=== PATIENT | male | born 1950 | race Hispanic/Latino ===

== ENCOUNTER 2016-12-05 17:51 | Inpatient (IN) | payer MEDICARE, OTHER ==
[~2016-12-05] VITALS: Ht 162.6 cm; Wt 88.0 kg
[2016-12-05 17:57] VITALS: BP 192/90; PULSE 111; RESP 20; O2SAT 98
--- NOTE | 2016-12-05 18:07 | ED.REPORT ---
HPI-Abd Pain M 40 and Over Date of Service Dec 05, 2016 ED Provider: Aamir Montemayor DO Pt is a 66 year old male with a hx of HTN presenting to the ED complaining of diffuse abdominal pain onset this morning. He went to [facility] today for dysuria, hematuria, urinary frequency, and urinary urgency and then when the physician palpated his abdomen he began having abdominal pain. Denies fever, chills, nausea, vomiting, SOB or wheezing. Nursing Notes Stated Complaint: ABDOMINAL PAIN Chief Complaint: Male Abdominal Pain Nursing Notes Reviewed: Yes Allergies: Coded Allergies: No Known Allergies (Unverified , 12/05/16) Scheduled Amlodipine (Amlodipine) 10 Mg Tablet 10 MG PO QAM Hydrochlorothiazide (Hydrochlorothiazide) 25 Mg Tablet 12.5 MG PO QAM Potassium Chloride ER (Potassium Chloride ER) 20 Meq Tablet.er 20 MEQ PO DAILYWM TAKE WITH FOOD Scheduled PRN Acetaminophen (Acetaminophen) 500 Mg Tablet 1,000 MG PO Q6H PRN PRN For Fever Tramadol (Tramadol) 50 Mg Tablet 50 MG PO Q8H PRN PRN For Pain General Time Seen by MD: 18:06 Chief Complaint Abdominal pain Hx Obtained From: Patient Arrived By: Walk-in Sudden in Onset?: Yes Onset Occurred: Just prior to arrival Symptom Duration: Since onset Location: : Diffuse Quality: Painful Severity: Current: Moderate Severity: Maximum: Severe Recent Healthcare: No recent hospitalization, Recent doctor visit Similar Sx Previous: No Past Medical History Past Medical History Reports: Hypertension Past Surgical History denies Smoking History Unknown if Ever Smoker Social History Other Social History: Ambulatory Status Independent Review of Systems Constitutional: Denies: Chills, Fever Respiratory: Denies: Shortness of breath, Wheezing GI: Reports: Abdominal pain, Denies: Nausea, Vomiting Male: Reports Dysuria, Reports Hematuria, Reports Urinary frequency, Reports Urinary urgency Complete sys rev & neg: except as marked. Physical Exam Initial Vital Signs Vital Signs (First) Date Time Temp Pulse Resp B/P Pulse Ox O2 Delivery O2 Flow Rate FiO2 12/05/16 17:57 36.9 111 20 192/90 98 Room Air Initial VS: Reviewed Head / Eyes: Atraumatic, Normocephalic, PERRL ENT: Mucous membranes moist, Conjunctiva normal, No scleral icterus Extremities: Vascular intact, Neuro intact, No swelling, No tenderness Skin: Warm, Dry, No cyanosis Neurologic: Alert, Oriented, Nonfocal Psychiatric: Mood/affect normal, Behavior normal, Normal thought content General/Constitutional: Awake Respiratory / Chest: Atraumatic, Breath sounds NL, Breath sounds = bilat, No respiratory distress Cardiovascular: Regular rhythm, Heart sounds NL Heart Rate / Rhythm: Positive: Tachycardia Abdomen: Atraumatic, Soft Tenderness/Guarding/Rebound: Positive: Tender diffuse Interpretation & Diagnostics Lab Results Interpretation Result Diagram: 12/05/16 1826 12/05/16 1826 Test 12/05/16 18:14 12/05/16 18:18 12/05/16 18:26 12/05/16 18:27 Hold Urine Received (Received) Urine Color Yellow (YELLOW) Urine Appearance Hazy (CLEAR,HAZY) Urine pH 7.0 (5.0-8.0) Urine Specific [place] 1.015 (1.003-1.035) Urine Protein Tracemg/dL (NEG,TRACE) Urine Glucose (UA) Negativemg/dL (NEGATIVE) Urine Ketones Negativemg/dL (NEGATIVE) Urine Occult Blood Large (NEGATIVE) Urine Nitrite Positive (NEGATIVE) Urine Bilirubin Negative (NEGATIVE) Urine Urobilinogen 1.0mg/dL (NORMAL) Urine Leukocyte Esterase Large (NEGATIVE) Urine RBC 3-10/hpf (0-2) Urine WBC 6-10/hpf (0-5) Urine Epithelial Cells None/hpf (NONE-MOD) Urine Crystals None seen (NONE SEEN) Urine Bacteria Many/hpf (NONE-FEW) Urine Hyaline Casts None/lpf (NONE) Urine Granular Casts None seen (NONE SEEN) Urine Waxy Casts None seen (NONE SEEN) Urine Red Blood Cell Casts None seen (NONE SEEN) Urine White Blood Cell Casts None seen (NONE SEEN) Urine Mucus None seen (None Seen) Urine Trichomonas None seen (NONE SEEN) Urine Yeast None (NONE SEEN) Urinalysis Comment None Urine Culture Reflexed Indicated White Blood Count 14.5th/mm3 (3.8-10.1) Red Blood Count 5.01mil/mm3 (4.40-5.80) Hemoglobin 15.8g/dL (13.8-17.2) Hematocrit 43.8% (41.0-50.0) Mean Corpuscular Volume 87.4fL (81-100) Mean Corpuscular Hemoglobin 31.5pg (27.0-35.0) Mean Corpuscular Hemoglobin Concent 36.1% (32.0-37.0) Red Cell Distribution Width 13.3% (12.3-15.4) Platelet Count 247bil/L (150-400) Neutrophils (%) (Auto) 82.7% (40-74) Lymphocytes (%) (Auto) 10.4% (14-46) Monocytes (%) (Auto) 6.1% (4-12) Eosinophils (%) (Auto) 0.3% (0-5) Basophils (%) (Auto) 0.3% (0-3) Sodium Level 135mEq/L (134-144) Potassium Level 3.5mEq/L (3.5-5.2) Chloride Level 99mEq/L (97-108) Carbon Dioxide Level 18mmol/L (18-29) Blood Urea Nitrogen 13mg/dL (8-27) Creatinine 0.88mg/dL (0.76-1.27) Estimat Glomerular Filtration Rate 93mL/min (>59) Glucose Level 106mg/dL (60-99) Calcium Level 9.2mg/dL (8.5-10.1) Magnesium Level 1.8mg/dL (1.6-2.6) Total Bilirubin 0.4mg/dL (0.0-1.2) Aspartate Amino Transf (AST/SGOT) 20U/L (0-50) Alanine Aminotransferase (ALT/SGPT) 16U/L (0-44) Alkaline Phosphatase 80U/L (25-160) Troponin T < 0.010ug/L (0.0-0.011) Total Protein 8.2g/dL (6.4-8.4) Albumin 4.5g/dL (3.4-5.0) Lipase 27U/L (13-60) Procalcitonin 0.04ng/mL (0.00-0.08) Hold Barraza Top Tube Received (Received) ECG Interpretation Time: 18:37 Interpreted by: ED physician Normal ECG Interpretation: Normal ECG w/ rate of... (97), Normal rate, Normal sinus rhythm CT Abd / Pelvis Interpretation IMPRESSION: Circumferential bladder wall thickening raising the possibility of infectious or inflammatory cystitis. Please correlate clinically and with urinalysis. Normal appendix. Cholelithiasis however no other CT evidence of acute cholecystitis. Recommend correlation with LFTs. Elsewhere, no acute abnormality Dictated by: Chris Tena M.D. on 12/05/2016 at 20:08 Study type: Abdominal CT IV contrast Interpretation / Wet Read by: Interpret - Radiologist Procedures Welch Catheter Time: 21:20 Procedure Performed by: ED physician Consent / Setup / Site Prep: Consent from patient, Hand hygiene observed, Stand sterile technique, Standard Welch site prep Welch Insertion: Urethra Size of Catheter: 14 Fr Catheter Type: Welch, Coude Welch Connected to: Bedside drainage bag Insertion / Complications: Insertion successful, No complications Re-Eval/Medical Decision Med Decision/Clinical Course 66-year-old previously healthy male presents with acute cystitis and urinary retention. Diffusely tender abdomen on presentation. Distended bladder seen on CT scan. Multiple indicators of cystitis on the urinalysis. CT scan shows evidence of cystitis. Difficult after placement. I was able to pass a 14 [place] coud Welch catheter. Initially there was no blood after inflating the balloon. About an hour later there appeared to be some clots and blood. I did a bedside ultrasound to confirm the catheter balloon is in his bladder. He felt better although is still pretty miserable. IV ceftriaxone infused. Urology consultation appreciated. Plan for fluids, antibiotics and starting Flomax in the morning. Time of Eval: 21:07 Patient Status: Condition improved Re-Evaluation/Progress Note: Discussed plan for catheterization. Pt understands and agrees. Time of Eval: 21:24 Patient Status: Condition improved Re-Evaluation/Progress Note: Put in the catheter. Pt feeling much better. Consultation #1: Referral / Consult Name: Guy Brown MD Consulted With: Hospitalist Call Returned at: 21:31 Speech Language Pathologist Prn: Will see patient, Agrees with plan, Accepts admit Consultation #2: Referral / Consult Name: Thomas López MD Consulted With: Urology Call Returned at: 21:40 Speech Language Pathologist Prn: Agrees with eval, Agrees with plan Note: Give 0.4 flomax starting tomorrow. He will speak to the hospitalist and see the pt if they request. Counseled Regarding: Diagnosis, Lab results, Need for admission Discharge & Departure Primary Impression: UTI (urinary tract infection) Urinary tract infection type: acute cystitis Hematuria presence: with hematuria Qualified Code: N30.01 - Acute cystitis with hematuria Additional Impressions: Urinary retention Fever Fever type: unspecified Qualified Code: R50.9 - Fever, unspecified Disposition: ADMITTED TO HOSPITAL Vital Signs - All Vital Signs Date Time Temp Pulse Resp B/P Pulse Ox O2 Delivery O2 Flow Rate FiO2 12/05/16 18:36 99 99 Room Air 12/05/16 18:23 164/101 12/05/16 17:57 36.9 111 20 192/90 98 Room Air )( All Prior VS Reviewed: Yes Condition: Improved Referrals: Polina Wilburn MD (Family) Scribe Attestation Portions of this note were transcribed by Charlette Cox. I, Dr. Montemayor personally performed the history, physical exam and medical decision-making; I reviewed and confirmed the accuracy of the information in the transcribed note. Signed by : Justyna Harrington, 12/05/2016. copies to: Polina Wilburn MD, Todd P DO Dec 05, 2016 18:07 CHARLETTE COX Dec 05, 2016 18:17
[2016-12-05] MEDS ORDERED: cefTRIAXone Inj 2,000 MG in Dextrose 5% Minibag Plus 50 ML IV ONE (18:15)
[2016-12-05 18:23] VITALS: BP 164/101
[2016-12-05 18:29] LABS: BASOPHILS % (AUTO) 0.3 % (0-3); EOSINOPHILS % (AUTO) 0.3 % (0-5); MONOCYTES % (AUTO) 6.1 % (4-12); Mean Corpuscular Hemoglobin 31.5 pg (27.0-35.0); Mean Corpuscular Volume 87.4 fL (81-100); NEUTROPHILS % (AUTO) 82.7 % (40-74); Platelet Count 247 bil/L (150-400)
[2016-12-05 18:36] VITALS: PULSE 99; O2SAT 99
[2016-12-05] MEDS: fentaNYL-PF 50 mCg/mL 2 mL Inj IVPUSH PRN ×5 (18:36→23:38)
[2016-12-05 19:03] LABS: APPEARANCE,URINE HAZY (CLEAR,HAZY); COLOR,URINE YELLOW (YELLOW)
[2016-12-05 19:04] LABS: OCCULT BLOOD,URINE LARGE (NEGATIVE)
[2016-12-05 19:29] LABS: Lipase 27 U/L (13-60); Magnesium 1.8 mg/dL (1.6-2.6)
[2016-12-05 19:30] LABS: TROPONIN T < 0.010 ug/L (0.0-0.011)
--- NOTE | 2016-12-05 20:15 | DRSVH ---
PROCEDURE: CT ABDOMEN AND PELVIS WITH CONTRAST ([id number]) INDICATIONS: abdominal pain, tachycardia TECHNIQUE: After the administration of intravenous contrast, 5 mm thick sections acquired from the diaphragm to the symphysis. 5 mm coronal and sagittal reformats were acquired. For radiation dose reduction, the following was used: automated exposure control, adjustment of mA and/or kV according to patient siz e. COMPARISON: None. FINDINGS: Image quality: Excellent. ABDOMEN: Lung bases: Lung bases are clear. Heart size is normal. Solid organs: Scattered subcentimeter hepatic hypodensities too small to characterize and nonspecific . Otherwise, liver and spleen are normal in size and enhancement. Gallbladder contains numerous gall stones however no gallbladder wall thickening or pericholecystic inflammation. Biliary system is non dilated. Pancreas enhances normally. No adrenal nodules. Kidneys demonstrate normal size and enha ncement, without hydronephrosis. Peritoneum and bowel: Bowel loops demonstrate normal wall thickness and caliber. No free fluid or a ir. Incidental colonic diverticulosis. Appendix appears normal. The rectum is decompressed otherwise unremarkable Nodes and vessels: No retroperitoneal or mesenteric adenopathy by size criteria. Aorta and inferior vena cava are normal in size. Miscellaneous: No ventral hernias. PELVIS: Genitourinary: Circumferential bladder wall thickening. Miscellaneous: No inguinal hernias or adenopathy. Bones: No suspicious bony lesions. No vertebral body compression fractures. Presumed bone island se en in the medial left acetabulum although technically nonspecific. IMPRESSION: Circumferential bladder wall thickening raising the possibility of infectious or inflammatory cystiti s. Please correlate clinically and with urinalysis. Normal appendix. Cholelithiasis however no other CT evidence of acute cholecystitis. Recommend correlation with LFTs. Elsewhere, no acute abnormality Dictated by: Chris Tena M.D. on 12/05/2016 at 20:08 Approved by: Chris Tena M.D. on 12/05/2016 at 20:13
[2016-12-05] MEDS ORDERED: Lidocaine 2% 6mL Topical Jelly ONE ×2 (20:33→21:06)
[2016-12-05] MEDS ORDERED: TRAM50TA2 PO (21:15)
[2016-12-05] MEDS ORDERED: HYDR25TA4 PO (21:15)
[2016-12-05] MEDS ORDERED: POTA-62 PO (21:15)
[2016-12-05] MEDS ORDERED: AMLO10TA3 PO (21:15)
[2016-12-05] MEDS ORDERED: ACET325T51 PO (21:15)
[2016-12-05] MEDS ORDERED: ACET-171 PO (21:21)
[2016-12-05] MEDS ORDERED: 0.9% Sodium Chloride 1,000 ML IV SCH (21:44)
[2016-12-05] MEDS ORDERED: Polyethylene Glycol (PEG) 17 Gm Powder PO PRN (21:45)
[2016-12-05] MEDS ORDERED: Ondansetron 2 mg/mL 2 mL Inj IVPUSH PRN (21:45)
[2016-12-05] MEDS ORDERED: Alum-Mag Hydrox-Simeth 30 mL Suspension PO PRN (21:45)
--- NOTE | 2016-12-05 22:48 | PCM.HPMED ---
Subjective Date of Service Dec 05, 2016 Primary Provider: Admitting Physician: Guy Brown MD Primary Care Physician: Debi Oseguera MD Attending Physician: Guy Brown MD Admit Status: From the Emergency Department, Remote Telemetry Chief Complaint: Abdominal pain with dysuria, fever, chills History of Present Illness: Mr. Gutierrze is a pleasant 66 year old gentleman with history of chronic pain secondary to bilateral shoulder interventions, and hypertension, who presented to the emergency department with a one-day history of diffuse abdominal pain with associated fever, chills, and dysuria. Initial evaluation included a CT scan of abdomen and pelvis with contrast, that revealed sequential bladder wall thickening, suspicious for infectious or inflammatory cystitis, without any other abnormalities noted. UA obtained revealed large amount occult blood, with positive nitrite, large amount leukocyte esterase, many bacteria, and no epithelial contaminants were noted. Patient was properly started on pain medications and ceftriaxone. Patient was admitted for further evaluation and treatment of sepsis secondary to urinary tract infection. - Hospital day 1 Patient states that his symptoms of diffuse lower abdominal pain, and dysuria, began earlier day of admission, without any inciting factors or events. Denies any history of similar, or any difficulties with urination, or prostate problems in the past. He does know evolution of subjective fevers and chills as the day progressed, and also reports diaphoresis, nausea, associated urgency and frequency. Denies any associated chest pain, shortness of breath, or vomiting. He notes decreased oral intake secondary to pain. Denied any noticeable hematuria. Denies any trauma. In the ED, T 36.9, pulse 111, respiratory 20, blood pressure 192/90, 98% on room air; white count 14.5 with 82.7% neutrophils, hemoglobin 15.8, platelets 247; electrolytes within range, LFTs within range, troponin negative, lipase 27 ; UA revealed large amount occult blood, positive nitrite, large amount leukocyte esterase, with many bacteria and no epithelial cell contaminants noted. Urinary culture was sent, blood cultures were also obtained. CT abdomen and pelvis with contrast revealed circumferential thickening of bladder wall indicative of infection or inflammatory cystitis. Initial therapies included pain control with fentanyl pushes, and ceftriaxone 2 g IV. ED kindly contacted urology, Dr. López, who recommended initiation of Flomax on second day of admission, and outpatient follow-up. Patient was transported to medical floor in stable condition. Review of Systems: Complete review of systems obtained, pertinent positives and negatives as noted in history of present illness Allergies Coded Allergies: No Known Allergies (Unverified , 12/05/16) Home Medications Obtained from ED documentation: Scheduled Amlodipine (Amlodipine) 10 Mg Tablet 10 MG PO QAM Hydrochlorothiazide (Hydrochlorothiazide) 25 Mg Tablet 12.5 MG PO QAM Potassium Chloride ER (Potassium Chloride ER) 20 Meq Tablet.er 20 MEQ PO DAILYWM TAKE WITH FOOD Scheduled PRN Acetaminophen (Acetaminophen) 500 Mg Tablet 1,000 MG PO Q6H PRN PRN For Fever Tramadol (Tramadol) 50 Mg Tablet 50 MG PO Q8H PRN PRN For Pain Patient does report to confirm amlodipine, hydrochlorothiazide, tramadol daily PMH Patient reports: Hypertension Patient denies any history of enlarged prostate, urinary problems, diabetes, coronary artery disease, asthma Surgical History Patient reports interventions completed on right shoulder and left shoulder, reported as "repair"; description sounds similar to rotator cuff repairs Family History Patient denies any history of etiologies with an family history, does note some hypertension Social History Hx Alcohol Use: No Hx Substance Use: No Hx Tobacco Use: No Living Arrangement: with Family Exam Vital Signs Vital Sign - Last Date Time Temp Pulse Resp B/P Pulse Ox O2 Delivery O2 Flow Rate FiO2 12/05/16 18:36 99 99 Room Air 12/05/16 18:23 164/101 12/05/16 17:57 36.9 20 Exam General: Alert and oriented 3; pleasant gentleman resting supine in bed in moderate distress with diaphoresis and warmth HEENT: Atraumatic, normocephalic, sclera anicteric with injection, membranes moist Neck: Full range of motion without pain Cardiac: Tachycardic with rate approximately 100 at time of examination without any appreciable murmurs Respiratory: Equal and adequate airflow all chaudhary without any wheeze or rhonchi ; no use of accessory muscles Chest: Atraumatic without any reproducible pain with palpation Abdomen: Soft, nondistended, notable mild diffuse pain, moderate lower abdominal pain Extremities: No edema appreciated : Welch placed, with red urine output Skin: Warm and mildly diaphoretic; no evidence of skin tenting MSK: 5/5 strength 4/4 extremities at major joints of the shoulder, hip Neuro: Cranial nerves II-XII grossly intact, speech without slur, facial expressions equal and symmetric Psych: Appropriate mood, affect, and responses to questions; good insight and judgment; moderate distress secondary to pain Additional note, patient was examined for admission immediately after placement of Welch, which was noted to be atraumatic painful, with multiple attempts before success. Patient was complaining of significant cramping pain after Welch placement Lab and Diagnostics Result Diagram: 12/05/16182512/05/161825 Assessment & Plan Mr. Gutierrez is a pleasant 66 year old gentleman with history of chronic pain secondary to bilateral shoulder interventions, and hypertension, presented to the emergency department with a one-day history of diffuse abdominal pain with associated fever, chills, and dysuria. Initial evaluation included a CT scan of abdomen and pelvis with contrast, that revealed circumferential bladder wall thickening, suspicious for infectious or inflammatory cystitis, without any other abnormalities noted. UA obtained revealed large amount occult blood, with positive nitrite, large amount leukocyte esterase, many bacteria, and no epithelial contaminants were noted. Patient was properly started on pain medications and ceftriaxone. Patient was admitted for further evaluation and treatment of sepsis secondary to urinary tract infection. - Hospital day 1 Sepsis, acute, present on admission, under therapy - On admit: P111, R20, WBC14.5; source likely urinary tract - UA on admission: Large amount occult blood, positive nitrite, large amount leukocyte esterase, many bacteria, no epithelial cell contaminants noted - Continue antibiotics: Ceftriaxone 2 g daily - Fluid resuscitation: NS100 - Blood cultures obtained and pending - Treat underlying cause Urinary tract infection, acute, present on admission, under therapy - Chief complaint: Abdominal pain with associated dysuria, fever, chills - UA on admission: Large amount occult blood, positive nitrite, large amount leukocyte esterase, many bacteria, no epithelial cell contaminants noted- UA on admission: Large amount occult blood, positive nitrite, large amount leukocyte esterase, many bacteria, no epithelial cell contaminants noted - CT abdomen pelvis with contrast: circumferential bladder wall thickening, suspicious for infectious or inflammatory cystitis, without any other abnormalities noted - ED kindly contacted Dr. López of urology: Recommendations to initiate Flomax 0.4 mg on second day of admission, with follow-up in outpatient setting - Welch was placed in emergency department, noted to be traumatic with some evidence of bleeding - Continue antibiotics: Ceftriaxone 2 g daily Hypertension, chronic, presumed stable - On admit: 192/90, decreased to 164/101 - Increase above baseline likely secondary to pain - Treat underlying causes, including UTI and associated pain - Resume home medications on reconciliation completed: Amlodipine 10 mg daily, hydrochlorothiazide 12.5 mg daily Chronic pain, presumed stable - Patient reports history of chronic pain of bilateral shoulders status post multiple interventions - Reports home medication as tramadol 50 mg every 8 hours as needed for pain; reports this medication works rather well - Patient and family report that stronger narcotics, such as Dilaudid, and oxycodone, causing patient to have altered mental status; they would like to avoid these narcotics - Continue with tramadol 50 mg every 4 hours as needed, plus fentanyl 25 g IV push every 2 hours as needed for breakthrough pain PCP: Oumar Cardenas PRN fever, bowel, nausea, pain DVT: SCDs Diet: Heart GI: Not indicated IVF: NS100 Code: FULL CODE Patient status:Patient is admitted under inpatient status with expected length of stay greater than 2 midnights due to severity of presenting symptoms, risk of adverse event, and complexity of treatment plan. Pain Evaluation: Adequate Pain Control GI Prophylaxis: Not indicated VTE Prophylaxis: Sub-Q Heparin (Unfractionated) Resuscitation Status: CPR: Attempt Resuscitation Attending Statement The patient was seen and examined together with Dr. Wren on 12/05 and I agree with the history, exam and plan as outlined in the note above. copies to: Thomas López MD; Debi Oseguera MD, Lindsay R DO Dec 05, 2016 22:24 Guy Brown MD Dec 06, 2016 00:34
[2016-12-05] MEDS: 0.9% Sodium Chloride 1,000 ML IV SCH (23:13)
--- NOTE | 2016-12-05 23:15 | NUR ---
Admit Received report from Halie TALAVERA RN @ 22:45, patient arriving @ this time via tech accompanied by and a friend slid self from gurney to bed mobility limited r/t pain of abd and f/c placement in ER, Dx UTI and retention admission and room orientation complete, placed on telemetry slightly tachy also febrile Tylenol gvn in ER Addendum: 12/06/16 at 0030 by GLORY NEWMAN RN Noted urine output pink tinged w/clots
[2016-12-05 23:30] VITALS: BP 164/67; PULSE 103; RESP 20; O2SAT 96
[2016-12-06] VITALS (7 sets, daily range): BP systolic 139–163; BP diastolic 69–77; PULSE 87–93; RESP 18; O2SAT 95–97
[2016-12-06] MEDS: fentaNYL-PF 50 mCg/mL 2 mL Inj IVPUSH PRN ×6 (03:08→20:49)
[2016-12-06 06:06] LABS: BASOPHILS % (AUTO) 0.2 % (0-3); EOSINOPHILS % (AUTO) 0.1 % (0-5); MONOCYTES % (AUTO) 7.1 % (4-12); Mean Corpuscular Hemoglobin 31.7 pg (27.0-35.0); Mean Corpuscular Volume 88.1 fL (81-100); NEUTROPHILS % (AUTO) 82.9 % (40-74); Platelet Count 220 bil/L (150-400)
[2016-12-06] MEDS: 0.9% Sodium Chloride 1,000 ML IV SCH ×3 (07:44→20:59)
[2016-12-06] MEDS ORDERED: Potassium Chloride 20 mEq SR Tablet PO ONE (08:05)
[2016-12-06] MEDS: Piperacillin-Tazo 3.375 Gm Inj 3.375 GM in Dextrose 5% Minibag Plus 50 ML IV SCH ×2 (09:34→17:26)
--- NOTE | 2016-12-06 13:08 | PCM.PNMED ---
Subjective Date of Service Dec 06, 2016 Subjective Patient is in bed, complaining of lower abdominal pain, needs IV opioids to control the pain. His white blood cell count increased today. I change antibiotics to Zosyn IV. We will follow up blood cultures, urine cultures and adjust antibiotics as needed. Continue with IV fluids. Exam Vital Signs Vital Sign - Last Date Time Temp Pulse Resp B/P Pulse Ox O2 Delivery O2 Flow Rate FiO2 12/06/16 08:50 37.5 89 18 163/77 95 Room Air Intake and Output 12/05/16 12/05/16 12/06/16 Cumulative From/Thru 15:00 23:00 07:00 12/05/16 17:57 - 12/06/16 06:23 Intake Total 1016 ml 1016 ml Output Total 1250 ml 1250 ml Balance -234 ml -234 ml Intake Oral 360 ml 360 ml IV Total 656 ml 656 ml Output Urine Total 1250 ml 1250 ml Exam GENERAL: Alert, not in distress, cooperative, weak HEAD: atraumatic, normocephalic, no bruises. EYES: CADY, EOMI, anicteric, able to fully open and close eyelids SKIN: Skin color normal, turgor normal. No visible rashes or lesions. EAR, NOSE, MOUTH, THROAT: Lips, oral mucosa, tongue gums, oropharynx are moist , pink, no lesions. Ears normal appearance, no lesions. NECK: supple ROM normal. RESPIRATORY: Lungs clear to auscultation. Good diaphragmatic excursion. Normal percussion sound. CARDIAC: normal S1 and S2; no rubs, murmurs, or gallops; regular rate and rhythm ABDOMEN: Abdomen soft, tender in the lower abdomen. BS normal. No masses or organomegaly. MUSCULOSKELETAL: ROM full, muscles are not tender EXTREMITIES: no pitting edema in LE, no new deformities or skin discoloration. NEURO: Alert, oriented X 3, Sensation grossly intact., Cranial nerves II-XII intact, Grossly normal motor function. PULSES: 2+ radial, 2+ carotid REVIEW OF SYSTEMS: GENERAL: no malaise, no fevers., SEE HPI HEENT: Negative for frequent or significant headaches All other reviewed and negative other than HPI. IVs and Medications Medications Reviewed: Medications were reviewed in detail Lab and Diagnostics Result Diagram: 12/06/16 0535 12/06/16 0535 Assessment & Plan Mr. Gutierrez is a pleasant 66 year old gentleman with history of chronic pain secondary to bilateral shoulder interventions, and hypertension, presented to the emergency department with a one-day history of diffuse abdominal pain with associated fever, chills, and dysuria. Initial evaluation included a CT scan of abdomen and pelvis with contrast, that revealed circumferential bladder wall thickening, suspicious for infectious or inflammatory cystitis, without any other abnormalities noted. UA obtained revealed large amount occult blood, with positive nitrite, large amount leukocyte esterase, many bacteria, and no epithelial contaminants were noted. Patient was properly started on pain medications and ceftriaxone. Patient was admitted for further evaluation and treatment of sepsis secondary to urinary tract infection. - Hospital day 1 Sepsis. UTI. Hematuria, most likely traumatic - stable - CT abdomen pelvis with contrast: circumferential bladder wall thickening, suspicious for infectious or inflammatory cystitis, without any other abnormalities noted - ED kindly contacted Dr. López of urology: Recommendations to initiate Flomax 0.4 mg on second day of admission, with follow-up in outpatient setting - Welch was placed in emergency department, noted to be traumatic with some evidence of bleeding - UA on admission: Large amount occult blood, positive nitrite, large amount leukocyte esterase, many bacteria, no epithelial cell contaminants noted Plan - Continue with IV fluids, start Zosyn IV, follow up blood cultures, follow up urine cultures Hypertension - Stable - Resume amlodipine and hold hydrochlorothiazide, patient is on IV fluids Chronic pain, presumed stable - Patient reports history of chronic pain of bilateral shoulders status post multiple interventions - Start oxycodone PO as needed - Continue with IV opioids prn for now Hypokalemia - Replace - Monitor DVT PROPHYLAXIS: SCD Code status: Full code Disposition: discharge in 2-3 days after patient improves. Labs, radiology tests, reviewed. Plan of care, medication side effects, home medication, diagnostic procedures and available alternatives were discussed and reviewed with patient. All questions answered. Patient verbalized understanding, approved and agreed to plan of care. Also discussed plan of care with patient's . GI Prophylaxis: Not indicated VTE Prophylaxis: Sub-Q Heparin (Unfractionated) VTE Mechanical Devices: Intermittant Pneumatic CD Resuscitation Status: CPR: Attempt Resuscitation Luis Mathis MD Dec 06, 2016 13:07
[2016-12-06] MEDS ORDERED: cefTRIAXone Inj 2,000 MG in Dextrose 5% Minibag Plus 50 ML IV SCH (19:00)
--- NOTE | 2016-12-06 19:30 | NUR ---
PAIN/VOIDING/UTI Patient being treated for UTI with antibiotics, WBC went for 14 to 18 yesterday. Welch draining dark esperanza urine 1725mls out this shift. First half of shift urine was pink tint. Penis and abdomen pain controlled with Ultram q4, and Fentnyal IVP for breakthrough.
[2016-12-07] VITALS (8 sets, daily range): BP systolic 121–162; BP diastolic 66–70; PULSE 70–91; RESP 17–18; O2SAT 96–98
[2016-12-07] MEDS: Piperacillin-Tazo 3.375 Gm Inj 3.375 GM in Dextrose 5% Minibag Plus 50 ML IV SCH ×2 (00:37→08:38)
--- NOTE | 2016-12-07 06:38 | NUR ---
Shift note Much improvement overnight medicated w/Fentanyl and Tramadol early in shift more pain free this am also good urine output and cleared up.
[2016-12-07] MEDS: 0.9% Sodium Chloride 1,000 ML IV SCH ×2 (07:09→19:06)
[2016-12-07 09:03] LABS: Mean Corpuscular Hemoglobin 31.1 pg (27.0-35.0); Mean Corpuscular Volume 88.5 fL (81-100)
[2016-12-07] MEDS ORDERED: Potassium Chloride 20 mEq SR Tablet PO ONE (10:10)
--- NOTE | 2016-12-07 10:10 | PCM.PNMED ---
Subjective Date of Service Dec 07, 2016 Subjective Patient is in bed, feeling better, complaining of lower abdominal pain. Exam Vital Signs Vital Sign - Last Date Time Temp Pulse Resp B/P Pulse Ox O2 Delivery O2 Flow Rate FiO2 12/07/16 09:08 70 12/07/16 08:30 37.3 18 134/70 98 Room Air Intake and Output 12/06/16 12/06/16 12/07/16 Cumulative From/Thru 15:00 23:00 07:00 12/05/16 17:57 - 12/07/16 06:12 Intake Total 2625 ml 1970 ml 5611 ml Output Total 1950 ml 2800 ml 6000 ml Balance 675 ml -830 ml -389 ml Intake Oral 1750 ml 600 ml 2710 ml IV Total 875 ml 1370 ml 2901 ml Output Urine Total 1950 ml 2800 ml 6000 ml Exam GENERAL: Alert, not in distress, HEAD: atraumatic, normocephalic, no bruises. EYES: EOMI, anicteric, able to fully open and close eyelids SKIN: Skin color normal, turgor normal. No visible rashes or lesions. EAR, NOSE, MOUTH, THROAT: Lips, oral mucosa, tongue are moist, pink, no lesions. NECK: no jugulovenous distention; supple ROM normal. RESPIRATORY: Lungs clear to auscultation. Good diaphragmatic excursion. CARDIAC: normal S1 and S2; no rubs, murmurs, or gallops; regular rate and rhythm ABDOMEN: Abdomen soft, tender in lower abdomen. BS normal. No masses or organomegaly. MUSCULOSKELETAL: ROM full, muscles are not tender EXTREMITIES: no pitting edema in LE, no new deformities or skin discoloration. NEURO: Alert, oriented X 3, Cranial nerves II-XII intact, Grossly normal motor function. PULSES: 2+ radial, 2+ carotid REVIEW OF SYSTEMS: GENERAL: no malaise, no fevers., SEE HPI HEENT: Negative for frequent or significant headaches All other reviewed and negative other than HPI. IVs and Medications Medications Reviewed: Medications were reviewed in detail Lab and Diagnostics Result Diagram: 12/07/1635 12/07/1635 Assessment & Plan Mr. Gutierrez is a pleasant 66 year old gentleman with history of chronic pain secondary to bilateral shoulder interventions, and hypertension, presented to the emergency department with a one-day history of diffuse abdominal pain with associated fever, chills, and dysuria. Initial evaluation included a CT scan of abdomen and pelvis with contrast, that revealed circumferential bladder wall thickening, suspicious for infectious or inflammatory cystitis, without any other abnormalities noted. UA obtained revealed large amount occult blood, with positive nitrite, large amount leukocyte esterase, many bacteria, and no epithelial contaminants were noted. Patient was properly started on pain medications and ceftriaxone. Patient was admitted for further evaluation and treatment of sepsis secondary to urinary tract infection. - Hospital day 1 Sepsis. UTI. Hematuria, most likely traumatic - stable - CT abdomen pelvis with contrast: circumferential bladder wall thickening, suspicious for infectious or inflammatory cystitis, without any other abnormalities noted - ED kindly contacted Dr. López of urology: Recommendations to initiate Flomax 0.4 mg on second day of admission, with follow-up in outpatient setting - Welch was placed in emergency department, noted to be traumatic with some evidence of bleeding - UA - pyuria - Ux - E.coli Plan - Continue with IV fluids, Zosyn IV for now - follow up blood cultures, follow up urine cultures Hypertension - Stable - c/w amlodipine and hold hydrochlorothiazide, patient is on IV fluids Chronic pain, presumed stable - Patient reports history of chronic pain of bilateral shoulders status post multiple interventions - Start oxycodone PO as needed - Continue with IV opioids prn for now Hypokalemia - Replace - Monitor DVT PROPHYLAXIS: SCD Code status: Full code Disposition: discharge in 2-3 days after patient improves. Labs, radiology tests, reviewed. Plan of care, diagnostic procedures and available alternatives were discussed and reviewed with patient. All questions answered. Patient verbalized understanding, approved and agreed to plan of care. Also discussed plan of care with patient's . GI Prophylaxis: Not indicated VTE Prophylaxis: Sub-Q Heparin (Unfractionated) VTE Mechanical Devices: Intermittant Pneumatic CD Resuscitation Status: CPR: Attempt Resuscitation Luis Mathis MD Dec 07, 2016 10:10
[2016-12-07] MEDS: cefTRIAXone Inj 2,000 MG in Dextrose 5% Minibag Plus 50 ML IV SCH (15:20)
--- NOTE | 2016-12-07 16:24 | NUR ---
Social Work Note: Initial Assessment Data& Assessment: EMR Reviewed. RESPIRATORY CARE PRACTITIONER met with pt at bedside to discuss discharge planning, RESPIRATORY CARE PRACTITIONER role explained and Discharge Planning Checklist provided. Horace Gutierrez is a 66 year old male admitted on 12/05/2016 for UTI, urinary retention. Pt has [facility] Medicare insurance coverage and sees Debi Oseguera MD for primary care. Pt lives in [place] with his spouse and is independent at baseline with all ADL's and no DME needs. Pt drives. Pt does not have HH or SNF hx. Pt does not have LTC insurance or VA benefits. Pt provided with DPOA/AD paperwork to review and complete when possible. Pt denies any other needs at this time. Pt to transport home when medically ready. MD does not identify any concerns for pt capacity for self care at this time. RESPIRATORY CARE PRACTITIONER to continue to follow if pt needs or MD orders arise. Plan: Anticipated discharge home via POV when medically ready. Pt denies any other needs. RESPIRATORY CARE PRACTITIONER to continue to follow if pt needs or MD orders arise. NORMA Garrido Addendum: 12/07/16 at 1627 by MARCY DEWITT Amended: Links added.
--- NOTE | 2016-12-07 18:33 | NUR ---
Pain Patient reports abdominal pain 7-8/10 when pain at worst, Tramadol given with patient reporting pain relief to 5/10. Patient reports 5/10 tolerable pain level.
[2016-12-07] MEDS: fentaNYL-PF 50 mCg/mL 2 mL Inj IVPUSH PRN (20:41)
[2016-12-08] VITALS (8 sets, daily range): BP systolic 123–149; BP diastolic 69–77; PULSE 77–96; RESP 16–18; O2SAT 99–100
[2016-12-08] MEDS: 0.9% Sodium Chloride 1,000 ML IV SCH (05:07)
--- NOTE | 2016-12-08 06:24 | NUR ---
Shift note similar to last night except only medicated once w/Fentanyl at shift start nothing since good clear urine output
[2016-12-08] MEDS: cefTRIAXone Inj 2,000 MG in Dextrose 5% Minibag Plus 50 ML IV SCH (07:56)
--- NOTE | 2016-12-08 12:21 | PCM.PNMED ---
Subjective Date of Service Dec 08, 2016 Subjective Resting in bed, daughter present. I just finished a phone call with Dr. López about this patient. Overall feeling much better, walking a bit yesterday, diet improving with oral intake. No fever. Back pain better. Exam Vital Signs Vital Sign - Last Date Time Temp Pulse Resp B/P Pulse Ox O2 Delivery O2 Flow Rate FiO2 12/08/16 08:42 96 12/08/16 08:33 37.0 18 149/72 100 Room Air Intake and Output 12/07/16 12/07/16 12/08/16 Cumulative From/Thru 15:00 23:00 07:00 12/05/16 17:57 - 12/08/16 06:05 Intake Total 818 ml 521 ml 1524 ml 8474 ml Output Total 1600 ml 3000 ml 82014 ml Balance 818 ml -1079 ml -1476 ml -2126 ml Intake Oral 220 ml 360 ml 3290 ml IV Total 818 ml 301 ml 1164 ml 5184 ml Output Urine Total 1600 ml 3000 ml 50604 ml Exam Skin; warm and dry, no rash HENT; adequate hydration, no lesion CV; reg, no murmur Resp; clear to ap Back; no palpable pain over the spin especially lumbar/thoracic Lab and Diagnostics Result Diagram: 12/07/1635 12/07/1635 Assessment & Plan Mr. Gutierrez is a pleasant 66 year old gentleman with history of chronic pain secondary to bilateral shoulder interventions, and hypertension, presented to the emergency department with a one-day history of diffuse abdominal pain with associated fever, chills, and dysuria. Initial evaluation included a CT scan of abdomen and pelvis with contrast, that revealed circumferential bladder wall thickening, suspicious for infectious or inflammatory cystitis, without any other abnormalities noted. UA obtained revealed large amount occult blood, with positive nitrite, large amount leukocyte esterase, many bacteria, and no epithelial contaminants were noted. Patient was properly started on pain medications and ceftriaxone. Patient was admitted for further evaluation and treatment of sepsis secondary to urinary tract infection. - Hospital day 1 1. Sepsis, poa, resolved; -pulse 111, WBC 14.5, and UTI on admission 2. UTI, poa, active improving - CT abdomen pelvis with contrast: circumferential bladder wall thickening, suspicious for infectious or inflammatory cystitis, without any other abnormalities noted - Dr. López of urology conveyed to me: initiate Flomax 0.4 mg on second day of admission, maintain burciaga at discharge, 10 day of antibiotics, with follow-up in outpatient setting - Burciaga was placed in emergency department, noted to be traumatic with some evidence of bleeding - Ux - E.coli sensitive to ceftriaxone - Ceftriaxone IV day # 4 3. Hypertension, poa, stable - c/w amlodipine and hold hydrochlorothiazide 4. Chronic back pain, poa, presumed stable - Patient reports history of chronic pain of bilateral shoulders status post multiple interventions - worse back pain after few days in bed but improving now - tramodol prn - vicodin PO or Fentanyl IV prn pain 5. Hypokalemia, poa, resolved - Replace - Monitor Disposition; - pcp is Dr. Debi Oseguera DVT PROPHYLAXIS: SCD Code status: Full code Disposition: discharge in 2-3 days after patient improves. Labs, radiology tests, reviewed. Plan of care, diagnostic procedures and available alternatives were discussed and reviewed with patient. All questions answered. Patient verbalized understanding, approved and agreed to plan of care. Also discussed plan of care with patient's . GI Prophylaxis: Not indicated VTE Prophylaxis: Sub-Q Heparin (Unfractionated) VTE Mechanical Devices: Intermittant Pneumatic CD Resuscitation Status: CPR: Attempt Resuscitation Iqra Braun MD Dec 08, 2016 12:21
[2016-12-08] MEDS ORDERED: HYDROcodone-APAP 5-325 mg Tablet PO PRN (12:25)
--- NOTE | 2016-12-08 17:56 | NUR ---
Social Work: [facility] unable to complete JACKI. SW visited patient's room in an attempt to obtain signature. Patient was not in room. No family at bedside. SW will reattempt at another time. NORMA pAonte
--- NOTE | 2016-12-08 19:09 | NUR ---
Pain/Burciaga Teaching Pt has been c/o back pain, tramadol has been effective for relief, but some concern about consistent back pain r/t pt admit of uti. MD is aware of this per pt, so will await any orders and readdress tomorrow am. Pt will be d/c w/ burciaga, so teaching has begun about burciaga care and switching and management of leg bag. Will c/t reinforce.
--- NOTE | 2016-12-09 05:01 | NUR ---
Nursing, NOC shift Patient is a/o, voices needs, pleasant and cooperative. Independant w/ ADLs and ambulation w/ steady gait. Welch draining clear esperanza urine to gravity. Denies urinary symptoms. PRN Tramadol and APAP given @ HS for c/o 9/10 back pain, which relieved some of the pain. Kpad also available at bedside. Patient requesting to speak to MD regarding possible KUB scan today, will pass on to day RN at shift change. VS are stable, slept well thru the NOC. CTM for changes.
[2016-12-09 06:13] VITALS: BP 145/71; PULSE 68; RESP 16; O2SAT 99
[2016-12-09 06:48] LABS: BASOPHILS % (AUTO) 0.5 % (0-3); MONOCYTES % (AUTO) 11.7 % (4-12); Mean Corpuscular Hemoglobin 31.4 pg (27.0-35.0); Mean Corpuscular Volume 88.4 fL (81-100); NEUTROPHILS % (AUTO) 55.6 % (40-74); Platelet Count 231 bil/L (150-400)
[2016-12-09] MEDS: cefTRIAXone Inj 2,000 MG in Dextrose 5% Minibag Plus 50 ML IV SCH (08:12)
[2016-12-09 08:33] VITALS: BP 151/76; PULSE 71; RESP 16; O2SAT 99
[2016-12-09 09:29] VITALS: PULSE 71
--- NOTE | 2016-12-09 10:48 | PCM.PNMED ---
Subjective Date of Service Dec 09, 2016 Subjective Patient in bed with present. Feeling much better for the most part but still with a lot of lower back pain especially when standing and walking. Eating well. Tolerating all medications. Exam Vital Signs Vital Sign - Last Date Time Temp Pulse Resp B/P Pulse Ox O2 Delivery O2 Flow Rate FiO2 12/09/16 09:29 71 12/09/16 08:33 36.7 16 151/76 99 Room Air Intake and Output 12/08/16 12/08/16 12/09/16 Cumulative From/Thru 15:00 23:00 07:00 12/05/16 17:57 - 12/08/16 18:23 Intake Total 1748 ml 58831 ml Output Total 2600 ml 73772 ml Balance -852 ml -2978 ml Intake Oral 1100 ml 4390 ml IV Total 648 ml 5832 ml Output Urine Total 2600 ml 64240 ml Exam Skin; warm and dry, no rash HENT; adequate hydration, no lesion CV; reg, no murmur Resp; clear to ap gi; soft non acute benign Back; little discomfort to palpation of lower lumbar spine Lab and Diagnostics Result Diagram: 12/09/1630 12/09/1630 Assessment & Plan Mr. Gutierrez is a pleasant 66 year old gentleman with history of chronic pain secondary to bilateral shoulder interventions, and hypertension, presented to the emergency department with a one-day history of diffuse abdominal pain with associated fever, chills, and dysuria. Initial evaluation included a CT scan of abdomen and pelvis with contrast, that revealed circumferential bladder wall thickening, suspicious for infectious or inflammatory cystitis, without any other abnormalities noted. UA obtained revealed large amount occult blood, with positive nitrite, large amount leukocyte esterase, many bacteria, and no epithelial contaminants were noted. Patient was properly started on pain medications and ceftriaxone. Patient was admitted for further evaluation and treatment of sepsis secondary to urinary tract infection. - Hospital day 1 1. Sepsis, poa, resolved; -pulse 111, WBC 14.5, and UTI on admission 2. UTI, poa, active improving - CT abdomen pelvis with contrast: circumferential bladder wall thickening, suspicious for infectious or inflammatory cystitis, without any other abnormalities noted - Dr. López of urology conveyed to me: initiate Flomax 0.4 mg on second day of admission, maintain burciaga at discharge, 10 day of antibiotics, with follow-up in outpatient setting - Burciaga was placed in emergency department, noted to be traumatic with some evidence of bleeding - Ux - E.coli sensitive to ceftriaxone - Ceftriaxone IV day # 5 3. Hypertension, poa, stable - c/w amlodipine and hold hydrochlorothiazide 4. Chronic back pain, poa, presumed stable - Patient reports history of chronic pain of bilateral shoulders status post multiple interventions - worse back pain after few days in bed but improving now - tramodol prn - vicodin PO or Fentanyl IV prn pain - will order MRI lumbar spine, evaluate for any evidence of infection 5. Hypokalemia, poa, resolved - Replace - Monitor Disposition; - pcp is Dr. Debi Oseguera DVT PROPHYLAXIS: SCD Code status: Full code Disposition: discharge in 2-3 days after patient improves. Labs, radiology tests, reviewed. Plan of care, diagnostic procedures and available alternatives were discussed and reviewed with patient. All questions answered. Patient verbalized understanding, approved and agreed to plan of care. Also discussed plan of care with patient's . GI Prophylaxis: Not indicated VTE Prophylaxis: Sub-Q Heparin (Unfractionated) VTE Mechanical Devices: Intermittant Pneumatic CD Resuscitation Status: CPR: Attempt Resuscitation Iqra Braun MD Dec 09, 2016 10:48
--- NOTE | 2016-12-09 13:31 | NUR ---
Pain Pt c/t c/o pain in back, on palpation there is significant muscle tightness in the mid back, may be r/t pain. Pt had MRI and awaiting results to see if there is anything to explain the continued pain. Pain c/t be managed w/ tramadol and apap w/ good relief, pain is primarily onset w/ ambulation, so if patient is at rest pain subsides.
--- NOTE | 2016-12-09 18:00 | DRSVH ---
PROCEDURE: MRI LUMBAR SPINE WITH AND WITHOUT CONTRAST ([id number]) INDICATIONS: lower lumbar pain, uti, r/o infection TECHNIQUE: Noncontrast sagittal T1 spin echo and T2 fast spin echo, sagittal STIR, axial T1 and T2 fast spin ech o through the lumbar spine. In cases with scoliosis, additional coronal T2 fast spin echo may be per formed. After the administration of contrast, sagittal and axial T1 spin echo with fat saturation th rough the lumbar spine. COMPARISON: [facility], MR, LUMBAR SPINE W/O CONTRAST, 11/06/2006, 12:40. FINDINGS: Image quality: Excellent. Alignment and curvature: There is mild retrolisthesis at L5-S1 which appears unchanged. Marrow: Marrow is of normal overall signal. No acute vertebral body compression fractures. No susp icious marrow enhancement. Spinal cord: Conus medullaris terminates at the L1-L2 level. Visualized spinal cord demonstrates no rmal signal, without suspicious enhancement. Paraspinous soft tissues: No paravertebral masses or fluid collections. No abnormal epidural enhanc ement or collections. There is paravertebral enhancement associated with facet arthropathy at L3-L4 and L4-5. There is a small left paravertebral synovial cyst also demonstrated at L3-L4 along the fac et joint. L1-L2: Normal appearance. L2-L3: Minimal loss of disc height. There is minimal right neuroforaminal narrowing. No spinal ankit l narrowing. L3-L4: Minimal disc bulge. There is mild facet arthropathy bilaterally with a small left synovial cy st. There is mild bilateral neuroforaminal narrowing. No spinal canal narrowing. L4-L5: Mild to based disc bulge. There is mild facet arthropathy. Mild to moderate bilateral neurof oraminal narrowing is present as well as mild spinal canal narrowing. L5-S1: Disc desiccation with mild loss of disc height and a small disc bulge. No spinal canal narrow ing. There is [id number] right and mild left neuroforaminal narrowing. IMPRESSION: 1. No abnormal paravertebral or epidural enhancement no fluid collections. 2. Bilateral facet arthropathy at L3-L4 and L4-5 associated with mild periarticular enhancement. A small synovial cyst is noted on the left at L3-L4. 3. Multilevel neuroforaminal narrowing including [id number] narrowing bilaterally at L4-5 and on the right at L5-S1. Dictated by: Jamari Lobo M.D. on 12/09/2016 at 17:48 Approved by: Jamari Lobo M.D. on 12/09/2016 at 17:59
[2016-12-09 18:01] VITALS: BP 151/77; PULSE 68; RESP 16; O2SAT 98
[2016-12-09 20:31] VITALS: BP 150/73; PULSE 71; RESP 17; O2SAT 97
[2016-12-10 02:10] VITALS: BP 154/70; PULSE 72; RESP 17; O2SAT 96
[2016-12-10 05:49] VITALS: BP 154/70; PULSE 64; RESP 17; O2SAT 96
--- NOTE | 2016-12-10 06:23 | NUR ---
Ambulation/PAIN Pt. ambulated in the hallway with FWW x2 laps, steady on feet, requested prn tramadol for chronic shoulder pain at HS, effective, FC intact and draining to gravity with yellow urine, vitals stable, call light in reach at all times, will continue to monitor.
[2016-12-10 07:17] LABS: BASOPHILS % (AUTO) 0.9 % (0-3); EOSINOPHILS % (AUTO) 4.4 % (0-5); MONOCYTES % (AUTO) 10.9 % (4-12); Mean Corpuscular Volume 88.6 fL (81-100); NEUTROPHILS % (AUTO) 57.1 % (40-74); Platelet Count 282 bil/L (150-400)
--- NOTE | 2016-12-10 08:07 | PCM.DIMED ---
Discharge Instructions Date of Service Dec 10, 2016 Dates of Hospitalization Dec 05, 2016 at 21:54 Discharge Diagnosis Discharge Diagnosis 1. Sepsis, poa, resolved; 2. UTI, poa, active improving 3. Hypertension, poa, stable 4. Chronic back pain, poa, presumed stable Diet Discharge Diet: Heart Healthy Activity Discharge Activity: Limited until seen by PCP Patient Instructions Follow-up plan !- take your antibiotics and flowmax 2- See the Urologist Dr López, in 2 to 3 weeks to help remove Welch and follow up of this urinary and bladder infection 3 follow up with your primary care provider in the near future Follow-up with PCP in: 2 weeks Iqra Braun MD Dec 10, 2016 08:07
[2016-12-10] MEDS ORDERED: LEVO500T79 PO (08:10)
[2016-12-10] MEDS ORDERED: TAMS0.4C98 PO (08:10)
--- NOTE | 2016-12-10 08:17 | PCM.DC.MED ---
Discharge Summary Date of Service Dec 10, 2016 Dates of Hospitalization Date of Hospital Admission Dec 05, 2016 at 21:54 Date of Discharge: Dec 10, 2016 Providers: Admitting Physician: Guy Brown MD Primary Care Physician: Debi Oseguera MD Attending Physician: Luis Mathis MD Diagnosis at Time of Discharge Diagnosis at Time of Discharge 1. Sepsis, poa, resolved; 2. UTI, poa, active improving 3. Hypertension, poa, stable 4. Chronic back pain, poa, presumed stable Procedures XRay, CTs & MRIs PROCEDURE: CT ABDOMEN AND PELVIS WITH CONTRAST ([id number]) INDICATIONS: abdominal pain, tachycardia TECHNIQUE: After the administration of intravenous contrast, 5 mm thick sections acquired from the diaphragm to the symphysis. 5 mm coronal and sagittal reformats were acquired. For radiation dose reduction, the following was used: automated exposure control, adjustment of mA and/or kV according to patient size. COMPARISON: None. FINDINGS: Image quality: Excellent. ABDOMEN: Lung bases: Lung bases are clear. Heart size is normal. Solid organs: Scattered subcentimeter hepatic hypodensities too small to characterize and nonspecific. Otherwise, liver and spleen are normal in size and enhancement. Gallbladder contains numerous gallstones however no gallbladder wall thickening or pericholecystic inflammation. Biliary system is non dilated. Pancreas enhances normally. No adrenal nodules. Kidneys demonstrate normal size and enhancement, without hydronephrosis. Peritoneum and bowel: Bowel loops demonstrate normal wall thickness and caliber. No free fluid or air. Incidental colonic diverticulosis. Appendix appears normal. The rectum is decompressed otherwise unremarkable Nodes and vessels: No retroperitoneal or mesenteric adenopathy by size criteria. Aorta and inferior vena cava are normal in size. Miscellaneous: No ventral hernias. PELVIS: Genitourinary: Circumferential bladder wall thickening. Miscellaneous: No inguinal hernias or adenopathy. Bones: No suspicious bony lesions. No vertebral body compression fractures. Presumed bone island seen in the medial left acetabulum although technically nonspecific. IMPRESSION: Circumferential bladder wall thickening raising the possibility of infectious or inflammatory cystitis. Please correlate clinically and with urinalysis. Normal appendix. Cholelithiasis however no other CT evidence of acute cholecystitis. Recommend correlation with LFTs. Elsewhere, no acute abnormality Dictated by: Chris Tena M.D. on 12/05/2016 at 20:08 PROCEDURE: MRI LUMBAR SPINE WITH AND WITHOUT CONTRAST ([id number]) INDICATIONS: lower lumbar pain, uti, r/o infection TECHNIQUE: Noncontrast sagittal T1 spin echo and T2 fast spin echo, sagittal STIR, axial T1 and T2 fast spin echo through the lumbar spine. In cases with scoliosis, additional coronal T2 fast spin echo may be performed. After the administration of contrast, sagittal and axial T1 spin echo with fat saturation through the lumbar spine. COMPARISON: [facility], MR, LUMBAR SPINE W/O CONTRAST, 2006, 12:40. FINDINGS: Image quality: Excellent. Alignment and curvature: There is mild retrolisthesis at L5-S1 which appears unchanged. Marrow: Marrow is of normal overall signal. No acute vertebral body compression fractures. No suspicious marrow enhancement. Spinal cord: Conus medullaris terminates at the L1-L2 level. Visualized spinal cord demonstrates normal signal, without suspicious enhancement. Paraspinous soft tissues: No paravertebral masses or fluid collections. No abnormal epidural enhancement or collections. There is paravertebral enhancement associated with facet arthropathy at L3-L4 and L4-5. There is a small left paravertebral synovial cyst also demonstrated at L3-L4 along the facet joint. L1-L2: Normal appearance. L2-L3: Minimal loss of disc height. There is minimal right neuroforaminal narrowing. No spinal canal narrowing. L3-L4: Minimal disc bulge. There is mild facet arthropathy bilaterally with a small left synovial cyst. There is mild bilateral neuroforaminal narrowing. No spinal canal narrowing. L4-L5: Mild to based disc bulge. There is mild facet arthropathy. Mild to moderate bilateral neuroforaminal narrowing is present as well as mild spinal canal narrowing. L5-S1: Disc desiccation with mild loss of disc height and a small disc bulge. No spinal canal narrowing. There is [id number] right and mild left neuroforaminal narrowing. IMPRESSION: 1. No abnormal paravertebral or epidural enhancement no fluid collections. 2. Bilateral facet arthropathy at L3-L4 and L4-5 associated with mild periarticular enhancement. A small synovial cyst is noted on the left at L3-L4. 3. Multilevel neuroforaminal narrowing including [id number] narrowing bilaterally at L4-5 and on the right at L5-S1. Dictated by: Jamari Lobo M.D. on 12/09/2016 at 17:48 Brief History Mr. Gutierrez is a pleasant 66 year old gentleman with history of chronic pain secondary to bilateral shoulder interventions, and hypertension, who presented to the emergency department with a one-day history of diffuse abdominal pain with associated fever, chills, and dysuria. Initial evaluation included a CT scan of abdomen and pelvis with contrast, that revealed sequential bladder wall thickening, suspicious for infectious or inflammatory cystitis, without any other abnormalities noted. UA obtained revealed large amount occult blood, with positive nitrite, large amount leukocyte esterase, many bacteria, and no epithelial contaminants were noted. Patient was properly started on pain medications and ceftriaxone. Patient was admitted for further evaluation and treatment of sepsis secondary to urinary tract infection. - Hospital day 1 Patient states that his symptoms of diffuse lower abdominal pain, and dysuria, began earlier day of admission, without any inciting factors or events. Denies any history of similar, or any difficulties with urination, or prostate problems in the past. He does know evolution of subjective fevers and chills as the day progressed, and also reports diaphoresis, nausea, associated urgency and frequency. Denies any associated chest pain, shortness of breath, or vomiting. He notes decreased oral intake secondary to pain. Denied any noticeable hematuria. Denies any trauma. In the ED, T 36.9, pulse 111, respiratory 20, blood pressure 192/90, 98% on room air; white count 14.5 with 82.7% neutrophils, hemoglobin 15.8, platelets 247; electrolytes within range, LFTs within range, troponin negative, lipase 27 ; UA revealed large amount occult blood, positive nitrite, large amount leukocyte esterase, with many bacteria and no epithelial cell contaminants noted. Urinary culture was sent, blood cultures were also obtained. CT abdomen and pelvis with contrast revealed circumferential thickening of bladder wall indicative of infection or inflammatory cystitis. Initial therapies included pain control with fentanyl pushes, and ceftriaxone 2 g IV. ED kindly contacted urology, Dr. López, who recommended initiation of Flomax on second day of admission, and outpatient follow-up. Patient was transported to medical floor in stable condition. Hospital Course Mr. Gutierrez is a pleasant 66 year old gentleman with history of chronic pain secondary to bilateral shoulder interventions, and hypertension, presented to the emergency department with a one-day history of diffuse abdominal pain with associated fever, chills, and dysuria. Initial evaluation included a CT scan of abdomen and pelvis with contrast, that revealed circumferential bladder wall thickening, suspicious for infectious or inflammatory cystitis, without any other abnormalities noted. UA obtained revealed large amount occult blood, with positive nitrite, large amount leukocyte esterase, many bacteria, and no epithelial contaminants were noted. Patient was properly started on pain medications and ceftriaxone. Patient was admitted for further evaluation and treatment of sepsis secondary to urinary tract infection. - Hospital day 1 1. Sepsis, poa, resolved; -pulse 111, WBC 14.5, and UTI on admission 2. UTI, poa, active improving - CT abdomen pelvis with contrast: circumferential bladder wall thickening, suspicious for infectious or inflammatory cystitis, without any other abnormalities noted - Dr. López of urology conveyed to me: initiate Flomax 0.4 mg on second day of admission, maintain burciaga at discharge, 10 day of antibiotics, with follow-up in outpatient setting - Burciaga was placed in emergency department, noted to be traumatic with some evidence of bleeding - Ux - E.coli sensitive to ceftriaxone - Ceftriaxone IV day # 6 -Patient will be discharged today with 5 more days of oral Levoquin 500, and flomax 0.4 daily and follow up with Dr López hopefully in 2-3 weeks where they can work on removing the burciaga. 3. Hypertension, poa, stable - resume reg meds 4. Chronic back pain, poa, presumed stable - Patient reports history of chronic pain of bilateral shoulders status post multiple interventions - worse back pain after few days in bed but improving now - tramodol prn - vicodin PO or Fentanyl IV prn pain - MRI lumbar spine ok with out evidence of acute trauma or infection 5. Hypokalemia, poa, resolved - Replace - Monitor Disposition; - pcp is Dr. Debi Oseguera DVT PROPHYLAXIS: SCD Code status: Full code Disposition: discharge in 2-3 days after patient improves. Labs, radiology tests, reviewed. Plan of care, diagnostic procedures and available alternatives were discussed and reviewed with patient. All questions answered. Patient verbalized understanding, approved and agreed to plan of care. Also discussed plan of care with patient's . Exam Vital Signs (Last) Date Time Temp Pulse Resp B/P Pulse Ox O2 Delivery O2 Flow Rate FiO2 12/10/16 05:49 36.8 64 17 154/70 96 Room Air Exam Skin; warm and dry, no rash HENT; adequate hydration, no lesion CV; reg, no murmur Resp; clear to ap gi; soft non acute benign Back; little discomfort to palpation of lower lumbar spine Test 12/05/16 18:14 12/05/16 18:18 12/05/16 18:26 12/05/16 18:27 Hold Urine Received (Received) Urine Color Yellow (YELLOW) Urine Appearance Hazy (CLEAR,HAZY) Urine pH 7.0 (5.0-8.0) Urine Specific [place] 1.015 (1.003-1.035) Urine Protein Tracemg/dL (NEG,TRACE) Urine Glucose (UA) Negativemg/dL (NEGATIVE) Urine Ketones Negativemg/dL (NEGATIVE) Urine Occult Blood Large (NEGATIVE) Urine Nitrite Positive (NEGATIVE) Urine Bilirubin Negative (NEGATIVE) Urine Urobilinogen 1.0mg/dL (NORMAL) Urine Leukocyte Esterase Large (NEGATIVE) Urine RBC 3-10/hpf (0-2) Urine WBC 6-10/hpf (0-5) Urine Epithelial Cells None/hpf (NONE-MOD) Urine Crystals None seen (NONE SEEN) Urine Bacteria Many/hpf (NONE-FEW) Urine Hyaline Casts None/lpf (NONE) Urine Granular Casts None seen (NONE SEEN) Urine Waxy Casts None seen (NONE SEEN) Urine Red Blood Cell Casts None seen (NONE SEEN) Urine White Blood Cell Casts None seen (NONE SEEN) Urine Mucus None seen (None Seen) Urine Trichomonas None seen (NONE SEEN) Urine Yeast None (NONE SEEN) Urinalysis Comment None Urine Culture Reflexed Indicated Magnesium Level 1.8mg/dL (1.6-2.6) Troponin T < 0.010ug/L (0.0-0.011) Lipase 27U/L (13-60) Hold Barraza Top Tube Received (Received) Test 12/07/16 08:35 12/09/16 06:30 12/10/16 06:40 Total Bilirubin 0.6mg/dL (0.0-1.2) Aspartate Amino Transf (AST/SGOT) 12U/L (0-50) Alanine Aminotransferase (ALT/SGPT) 10U/L (0-44) Alkaline Phosphatase 52U/L (25-160) Total Protein 6.3g/dL (6.4-8.4) Albumin 3.6g/dL (3.4-5.0) Procalcitonin 0.08ng/mL (0.00-0.08) White Blood Count 5.9th/mm3 (3.8-10.1) Red Blood Count 4.48mil/mm3 (4.40-5.80) Hemoglobin 13.9g/dL (13.8-17.2) Hematocrit 39.7% (41.0-50.0) Mean Corpuscular Volume 88.6fL (81-100) Mean Corpuscular Hemoglobin 31.0pg (27.0-35.0) Mean Corpuscular Hemoglobin Concent 35.0% (32.0-37.0) Red Cell Distribution Width 13.1% (12.3-15.4) Platelet Count 282bil/L (150-400) Neutrophils (%) (Auto) 57.1% (40-74) Lymphocytes (%) (Auto) 26.0% (14-46) Monocytes (%) (Auto) 10.9% (4-12) Eosinophils (%) (Auto) 4.4% (0-5) Basophils (%) (Auto) 0.9% (0-3) Sodium Level 136mEq/L (134-144) Potassium Level 4.1mEq/L (3.5-5.2) Chloride Level 100mEq/L (97-108) Carbon Dioxide Level 19mmol/L (18-29) Blood Urea Nitrogen 12mg/dL (8-27) Creatinine 0.80mg/dL (0.76-1.27) Estimat Glomerular Filtration Rate 103mL/min (>59) Glucose Level 107mg/dL (60-99) Calcium Level 8.8mg/dL (8.5-10.1) Discharge Medications Discharge Medications Amlodipine (Amlodipine) 10 Mg Tablet 10 MG PO QAM (Reported) Hydrochlorothiazide (Hydrochlorothiazide) 25 Mg Tablet 12.5 MG PO QAM (Reported ) Levofloxacin (Levofloxacin) 500 Mg Tablet 500 MG PO DAILY Prescribed by: Iqra ROSE MD Potassium Chloride ER (Potassium Chloride ER) 20 Meq Tablet.er 20 MEQ PO DAILYWM (Reported) TAKE WITH FOOD Tamsulosin (Flomax) 0.4 Mg Capsule 0.4 MG PO DAILY Prescribed by: Iqra ROSE MD As needed Acetaminophen (Acetaminophen) 500 Mg Tablet 1,000 MG PO Q6H PRN PRN For Fever ( Reported) Tramadol (Tramadol) 50 Mg Tablet 50 MG PO Q8H PRN PRN For Pain (Reported) Followup Plan Follow-up plan !- take your antibiotics and flowmax 2- See the Urologist Dr López, in 2 to 3 weeks to help remove Burciaga and follow up of this urinary and bladder infection 3 follow up with your primary care provider in the near future Discharge Diet: Heart Healthy Discharge Activity: Limited until seen by PCP Follow-up with PCP in: 2 weeks Attending Statement 35 minutes time spent discharging patient so far today. copies to: Thomas López MD; Debi Oseguera MD, D Geoffrey MD Dec 10, 2016 08:16
[2016-12-10] MEDS: cefTRIAXone Inj 2,000 MG in Dextrose 5% Minibag Plus 50 ML IV SCH (08:20)
--- NOTE | 2016-12-10 10:24 | NUR ---
Discharge Pt d/c at 1000, walked self out w/ . Time taken to reinforce burciaga and catheter care, changing of leg bag in a clean manner and taking abx as prescribed. Pt had no questions regarding d/c plan and left with no concerns. It was a pleasure taking care of this patient.
--- NOTE | 2016-12-10 11:41 | NUR ---
Updated PHARMACY CARE COORDINATOR about discharge on this patient.
--- NOTE | 2016-12-10 15:56 | NUR ---
Social Work Note: Discharge Data& Assessment: Per MD in multidisciplinary rounds, pt is medically ready to discharge. Horace Gutierrez is a 66 year old male admitted on 12/05/2016 for UTI. Per MD pt is medically improved and ready to discharge home via POV with his spouse who is a FOOD AND BEVERAGE ANALYST. Pt transferred to P.O antibiotics. No other MD orders identified. No other pt needs or discharge needs identified. All updated and agreeable to plan. Plan: Per pt is medically ready to discharge home via POV. No other MD orders or pt needs identified. NORMA Garrido
== END 2016-12-10 10:00 | disposition home or self-care (01) | DRG 872 ==
LOC: SED 17:51 → MOC 21:54 → OBSVTOIN 21:54 → MOC 23:08
PROVIDERS: ADMIT Hospitalist; ATTEND Internal Medicine
DX: A41.51 Sepsis due to Escherichia coli [E. coli] (principal); N30.01 Acute cystitis with hematuria; G89.29 Other chronic pain; I10 Essential (primary) hypertension; E87.6 Hypokalemia; M54.89 Other dorsalgia